=== PATIENT | male | born 1960 | race Caucasian/White ===

== ENCOUNTER → 2017-03-04 | Day surgery (SDC) | payer OTHER ==
[~2017-03-04] MED LIST: ASPIRIN81 M1 PO; ATENOLOL25 MG PO; BRILINTA90 M1 PO; LISINOPRIL2.5 MG PO; LISINOPRIL5 MG PO; NITROSTAT0.4 MG SL; NORCO 5-325 TA1 EACH PO; PLAVIX75 MG PO; PRAVACHOL40 MG PO; SIMVASTATIN40 MG PO
--- NOTE | ~2017-03-04 | O ---
[place], [place] OPERATIVE NOTE NAME: JUSTIN RUFFIN UNIT #: [id number] ROOM: DOCTOR: MARK LINTON MD BIRTHDATE: [birth year] DOS: 03/04/2017 PREOPERATIVE DIAGNOSIS: Right lateral knee soft tissue mass. POSTOPERATIVE DIAGNOSIS: Right lateral knee soft tissue mass. PROCEDURE: Excision of right lateral knee soft tissue mass. SURGEON: Mark Linton MD HAND WASHER: MS3. ANESTHESIA: Local (4 mL of 1% plain lidocaine). INDICATIONS: This is a 56-year-old gentleman with a history of a soft tissue mass on the right lateral knee. He wanted it excised because it was symptomatic. It was decided to take the patient to the operating room under local anesthesia for excision of this mass. The procedure and its complications were explained to the patient in detail preoperatively. Complications that were discussed included but were not limited to bleeding, infection, hematoma/seroma/abscess formation, and prolonged pain. He agreed to proceed. DESCRIPTION OF PROCEDURE: After identifying the patient, the patient was brought to the operating suite and laid in the supine position. After the parts were painted and draped in the usual sterile fashion, a timeout procedure was called and an incision was marked in the long axis of the incision. Local anesthesia was infiltrated. The skin and the subcutaneous tissue were incised. The mass was excised in its entirety after it was dissected away from the surrounding structures. It was sent for histopathological diagnosis. Thereafter, hemostasis was achieved with the help of electrocautery. The area was then irrigated with saline and after hemostasis was confirmed, the subcutaneous tissue was approximated with the help of 3-0 Vicryl in interrupted fashion and the skin edges were approximated with the help of 4-0 Vicryl in a subcuticular running fashion. Dressings are given. The patient tolerated the procedure well. There were no complications. Dr. Mark Linton, the attending surgeon, was present throughout the operating case. [place], [place] OPERATIVE NOTE NAME: JUSTIN RUFFIN UNIT #: [id number] ROOM: DOCTOR: MARK LINTON MD BIRTHDATE: [birth year] Mark Linton MD CM:OPRECORD:OPERATIVE NOTE [id number] MARK LINTON MD 03/05/17 0554 interface
[2017-03-04 10:37] VITALS: BP 101/53
[2017-03-04 11:45] VITALS: BP 122/65
[2017-03-04 12:00] VITALS: BP 115/66
== END | disposition home or self-care (01) ==
LOC: SDC 02-22 12:30
DX: C49.21 Malignant neoplasm of connective and soft tissue of right lower limb, including hip (principal); I25.2 Old myocardial infarction; I10 Essential (primary) hypertension; E78.5 Hyperlipidemia, unspecified; Z95.818 Presence of other cardiac implants and grafts; Z82.49 Family history of ischemic heart disease and other diseases of the circulatory system; Z83.3 Family history of diabetes mellitus; Z87.891 Personal history of nicotine dependence

== ENCOUNTER 2017-03-16 11:38 | Inpatient (IN) | payer OTHER ==
[2017-03-16] VITALS (9 sets, daily range): BP systolic 126–145; BP diastolic 71–83
[~2017-03-16] VITALS: Ht 172.7 cm; Wt 88.7 kg
--- NOTE | ~2017-03-16 | EKG ---
[place], [place] ELECTROCARDIOGRAM REPORT NAME: JUSTIN RUFFIN UNIT #: [id number] ROOM: 416 DOCTOR: SHAKIRA CONNELL MD BIRTHDATE: [birth year] DOS: 03/17/2017 TIME: 0640 in the morning. FINDINGS: Sinus rhythm at rate of 61. T-wave flattening with lateral T-wave inversion. Abnormal electrocardiogram. SHAKIRA CONNELL MD CM:EKGRPT:ELECTROCARDIOGRAM REPORT [id number] SHAKIRA CONNELL MD
--- NOTE | ~2017-03-16 | ST ---
[place], [place] EXERCISE STRESS TEST REPORT NAME: JUSTIN RUFFIN UNIT #: [id number] ROOM: 416 DOCTOR: SHAKIRA CONNELL MD BIRTHDATE: [birth year] DOS: 03/17/2017 PHARMACOLOGIC STRESS TEST INDICATIONS: Chest pain, history of coronary artery disease. PROCEDURE: The patient was given a rapid infusion of regadenoson 0.4 mg intravenously followed by a saline flush. He experienced nausea, lightheadedness and dyspnea, all of which resolved spontaneously. The resting electrocardiogram showed sinus bradycardia. With the infusion, his heart rate surekha from 46-83 beats per minute, blood pressure fell from 104/72-102/60. No diagnostic ST or T-wave changes occurred. After the infusion, he was given radionuclide intravenously. IMPRESSION: 1. Well tolerated infusion of regadenoson. 2. Radionuclide injected. Please see the separate imaging report for further details of the patient's stress test results. SHAKIRA CONNELL MD CM:STRESS:EXERCISE STRESS TEST REPORT [id number] SHAKIRA CONNELL MD
--- NOTE | ~2017-03-16 | EKG ---
[place], [place] ELECTROCARDIOGRAM REPORT NAME: JUSTIN RUFFIN UNIT #: [id number] ROOM: 416 DOCTOR: SHAKIRA CONNELL MD BIRTHDATE: [birth year] DOS: 03/16/2017 TIME: 11:55 a.m. FINDINGS: Normal sinus rhythm at rate of 61. Nonspecific T-wave flattening. Abnormal electrocardiogram. SHAKIRA CONNELL MD CM:EKGRPT:ELECTROCARDIOGRAM REPORT [id number] SHAKIRA CONNELL MD
[2017-03-16 12:22] LABS: BASO # 0.1 10*3/uL (0.0-0.1); BASO % 0.7 % (0.0-1.0); EOS # 0.4 10*3/uL (0.0-0.4); EOS % 4.2 % (1.0-4.0); HEMOGLOBIN 16.3 g/dl (14.0-18.0); IG # 0.1 10*3/uL (0.0-0.1); LYMPH # 2.9 10*3/uL (1.3-4.4); MEAN CELL VOLUME 90.2 fl (80.0-94.0); MEAN CORPUSCULAR HGB 31.3 pg (27.0-31.0); MEAN CORPUSCULAR HGB CONC 34.7 g/dl (33.0-37.0); MEAN PLATELET VOLUME 9.4 fl (9.6-12.3); MONO # 0.8 10*3/uL (0.1-1.0); MONO % 8.3 % (3.0-9.0); NEUT # 5.3 10*3/uL (2.3-7.9); NEUT % 56.3 % (47.0-73.0); PLATELET COUNT AUTOMATED 308 10*3/uL (130-400); RED BLOOD COUNT 5.21 10*6/uL (4.50-5.90); RED CELL DISTRI WIDTH 14.8 % (0-14.5); WHITE BLOOD COUNT 9.5 10*3/uL (4.8-10.8)
[2017-03-16 12:32] LABS: PROTHROMBIN TIME 10.7 SECONDS (9.0-12.4)
[2017-03-16 12:39] LABS: ALBUMIN 3.8 gm/dl (3.1-4.5); ALKALINE PHOSPHATASE 75 U/L (45-117); BILIRUBIN, TOTAL 0.5 mg/dl (0.2-1.0); BUN 11 mg/dl (7-24); CARBON DIOXIDE 26 mmol/L (21-32); CHLORIDE 107 mmol/L (98-107); EST GLOM FILT AFRICAN AMERICAN > 60 ml/min; GLUCOSE 126 mg/dL (65-99); MAGNESIUM 2.1 mg/dL (1.5-2.1); POTASSIUM 3.9 mmol/L (3.5-5.1); SGOT/AST 19 IU/L (3-35); SGPT/ALT 35 U/L (12-78); SODIUM 138 mmol/L (136-145)
[2017-03-16 12:44] LABS: TROPONIN I < 0.015 ng/ml (<0.045)
[2017-03-16 18:46] LABS: CKMB 0.6 ng/ml (0.5-3.6); CPK 69 U/L (39-308)
[2017-03-16 18:47] LABS: TROPONIN I < 0.015 ng/ml (<0.045)
[2017-03-17] VITALS: BP 107/60
[2017-03-17 00:49] LABS: CPK 82 U/L (39-308)
[2017-03-17 00:51] LABS: CKMB < 0.5 ng/ml (0.5-3.6); TROPONIN I < 0.015 ng/ml (<0.045)
[2017-03-17 06:06] LABS: BASO # 0.1 10*3/uL (0.0-0.1); BASO % 0.7 % (0.0-1.0); EOS # 0.4 10*3/uL (0.0-0.4); EOS % 4.4 % (1.0-4.0); HEMATOCRIT 49.5 % (42.0-52.0); HEMOGLOBIN 16.5 g/dl (14.0-18.0); IG # 0.1 10*3/uL (0.0-0.1); LYMPH # 3.9 10*3/uL (1.3-4.4); LYMPH % 38.7 % (27.0-41.0); MEAN CELL VOLUME 91.3 fl (80.0-94.0); MEAN CORPUSCULAR HGB 30.4 pg (27.0-31.0); MEAN CORPUSCULAR HGB CONC 33.3 g/dl (33.0-37.0); MEAN PLATELET VOLUME 9.5 fl (9.6-12.3); MONO % 9.5 % (3.0-9.0); NEUT # 4.6 10*3/uL (2.3-7.9); PLATELET COUNT AUTOMATED 314 10*3/uL (130-400); RED BLOOD COUNT 5.42 10*6/uL (4.50-5.90); RED CELL DISTRI WIDTH 14.8 % (0-14.5)
[2017-03-17 06:15] LABS: CPK 67 U/L (39-308)
[2017-03-17 06:24] LABS: CKMB < 0.5 ng/ml (0.5-3.6); TROPONIN I < 0.015 ng/ml (<0.045)
[2017-03-17 06:34] LABS: BUN 10 mg/dl (7-24); CARBON DIOXIDE 26 mmol/L (21-32); CHLORIDE 110 mmol/L (98-107); CHOLESTEROL 154 mg/dL (<200); EST GLOM FILT AFRICAN AMERICAN > 60 ml/min; FREE T4 0.94 ng/dl (0.76-1.46); GLUCOSE 108 mg/dL (65-99); HDL CHOLESTEROL 37 mg/dl (40-60); LDL CHOLESTEROL 72 mg/dL (9-159); POTASSIUM 3.9 mmol/L (3.5-5.1); SODIUM 134 mmol/L (136-145); TRIGLYCERIDES 223 mg/dl (<150); VLDL CHOLESTEROL 45 mg/dL (6-40)
[2017-03-17 06:52] LABS: PROTHROMBIN TIME 10.7 SECONDS (9.0-12.4)
[2017-03-17 06:58] LABS: HEMOGLOBIN A1c 6.1 % (4.8-5.6)
[2017-03-17 07:21] LABS: VITAMIN D, 25-HYDROXY 49.2 ng/mL (30-100)
[2017-03-17 07:36] LABS: FOLIC ACID > 24.00 ng/mL (>5.38)
[2017-03-17 08:00] VITALS: BP 98/53
[2017-03-17] MEDS ORDERED: ATORVASTATIN CA80 M1 PO (15:58)
[2017-03-17] MEDS ORDERED: CALCIUM CARBON500 M1 PO (15:58)
[2017-03-17] MEDS ORDERED: METOPROLOL SUCC25 M2 PO (15:58)
[2017-03-17 16:00] VITALS: BP 107/72
[2017-03-17 20:00] VITALS: BP 128/70
[2017-03-18] VITALS: BP 104/52
[2017-03-18 08:00] VITALS: BP 150/75
== END 2017-03-18 08:37 | disposition other institution (70) | DRG 303 ==
LOC: ED 11:38 → EDHOLD 14:08 → 4E 14:08
PROVIDERS: Emergency Medicine; Internal Medicine
DX: I25.9 Chronic ischemic heart disease, unspecified (principal); E87.8 Other disorders of electrolyte and fluid balance, not elsewhere classified; I10 Essential (primary) hypertension; R00.1 Bradycardia, unspecified; I25.118 Atherosclerotic heart disease of native coronary artery with other forms of angina pectoris; R73.9 Hyperglycemia, unspecified; F17.200 Nicotine dependence, unspecified, uncomplicated; E78.5 Hyperlipidemia, unspecified; I25.2 Old myocardial infarction; Z82.49 Family history of ischemic heart disease and other diseases of the circulatory system; Z83.3 Family history of diabetes mellitus; Z79.82 Long term (current) use of aspirin; Z79.899 Other long term (current) drug therapy; Z71.6 Tobacco abuse counseling; Z95.818 Presence of other cardiac implants and grafts

== ENCOUNTER 2017-08-10 15:59 | Inpatient (IN) | payer BC, MEDICAID ==
[~2017-08-10] VITALS: Ht 172.7 cm; Wt 90.5 kg
--- NOTE | ~2017-08-10 | CON ---
[place], [place] REPORT OF CONSULTATION NAME: JUSTIN RUFFIN UNIT #: [id number] ROOM: 426 DOCTOR: ABEL NIEVESKARANSEBASTIÁN BIRTHDATE: [birth year] DOS: 08/11/2017 REQUESTING PHYSICIAN: Dr. Cruz. REASON FOR CONSULTATION: Chest pain. ASSESSMENT: 1. Current presentation with chest pain similar to what patient had prior to his previous stents. 2. Right lower extremity edema and swelling along with evidence of DVT. 3. The patient was found out also to have a PE. 4. Recent diagnosis of right lower extremity sarcoma status post surgery at the [facility]. 5. Hypertension. 6. The patient appears to be prediabetic. 7. Hyperlipidemia. 8. Active tobacco abuse. 9. Probable obstructive sleep apnea. 10. Early family history of heart disease. PLAN: 1. Cycle cardiac enzymes. 2. Proceed with an echocardiogram to rule out any wall motion abnormalities and evaluate the right-sided chambers. 3. Anticoagulation with either Lovenox/Xarelto/NOACs will be deferred to primary team. 4. Please continue enteric-coated aspirin 81 mg. 5. No further cardiac testing at this time. 6. Follow up with Dr. Eckert as an outpatient per his discretion. HISTORY OF PRESENT ILLNESS: The patient is a pleasant 56-year-old gentleman well known to our group with Dr. Eckert, the patient carries history of coronary artery disease. Apparently, he underwent PTCA stent placement about [address] Clifton on [place]. From the cardiology point of view, the patient has been doing relatively well. He is active, but does not follow a regular exercise program. Yesterday, the patient had an episode of chest pain which is quite similar to what he had before his stents. The pain starts from his neck and goes all the way down burning sensation that lasted about 20 minutes. The patient took nitro but did not respond promptly to this medication. The patient subsequently presented to the emergency room where he was found to have significant swelling in the right lower extremity, DVT was found out along with PE after that. The patient never had any symptomatic palpitation or any associated dizziness, lightheadedness or near syncope. No fever, no chills, no night sweats, maintained good appetite, no weight loss. He sleeps on 1 pillow with no reported PND, orthopnea, or pedal edema. The patient does give report of snoring. PAST MEDICAL HISTORY: As detailed in my assessment. SOCIAL HISTORY: The patient continued to smoke, has been doing this since he [place], [place] REPORT OF CONSULTATION NAME: JUSTIN RUFFIN UNIT #: [id number] ROOM: 426 DOCTOR: SEAN ROMAN MD BIRTHDATE: [birth year] was 8-year-old. No alcohol or illicit drug abuse. FAMILY HISTORY: The patient's mother in her 70s probably from myocardial infarction. The patient is unsure how early did she have heart problem. Father in his 60s of myocardial infarction. CURRENT MEDICATIONS: Lovenox , Restoril, Zofran, morphine, Dulcolax and aspirin. ALLERGIES: The patient has no known drug allergies. REVIEW OF SYSTEMS: The patient currently denies any headache, diplopia, or blurry vision. No fever, no chills, no night sweats. No abdominal pain, no bright red blood per rectum or tarry stools. The patient admits to joint pain, no muscular pain. No anxiety, no depression. No polyuria, no polydipsia, no skin rash. Review of all other systems has been negative. PHYSICAL EXAMINATION: GENERAL: The patient is alert, oriented times 3, quite pleasant. He is sitting up in bed, does not appear in distress, just finished his breakfast. VITAL SIGNS: Blood pressure 123/80, heart rate 57, respiration rate of 20, temperature 98. HEENT: Extraocular muscles intact. Pupils equal, round, reactive to light. No pallor. Throat, no petechiae. NECK: Good upstroke. Unable to appreciate any bruit, no lymphadenopathy, no thyromegaly. HEART: S1, S2 with faint holosystolic murmur in the left upper sternal border. No rub, no sternal heave. CHEST AND BACK: No deformities. LUNGS: Clear to auscultation. Good air movement. No wheezing, rales. ABDOMEN: Obese, soft, nontender. bowel sounds. No masses, no bruits. LOWER EXTREMITIES: There is no edema on the left. There is significant edema on the right with erythema. Faint distal pulses. NEUROLOGIC: Grossly nonfocal. SKIN: No significant rash. Electrocardiogram showed normal sinus rhythm with mild nonspecific ST changes throughout the EKG. LABORATORY DATA: White count 8.8, hemoglobin 13.5, potassium 3.9. GFR more than 60%. Hemoglobin A1c 6.1. Troponin less than 0.015. Total cholesterol 107, LDL 46, HDL 30. Normal thyroid function test. [place], [place] REPORT OF CONSULTATION NAME: JUSTIN RUFFIN UNIT #: [id number] ROOM: 426 DOCTOR: SEAN ROMAN MD BIRTHDATE: [birth year] SEAN ROMAN MD CM:CONSTR:REPORT OF CONSULTATION 0958 08/12/17 1606 interface
[~2017-08-10 15:59] MED LIST changes: +ATORVASTATIN CA80 M1 PO; +CALCIUM CARBON500 M1 PO; +METOPROLOL SUCC25 M2 PO
[2017-08-10 16:07] VITALS: BP 104/60
[2017-08-10 16:18] LABS: BASO # 0.1 10*3/uL (0.0-0.1); BASO % 0.6 % (0.0-1.0); EOS # 0.5 10*3/uL (0.0-0.4); EOS % 4.5 % (1.0-4.0); HEMATOCRIT 42.6 % (42.0-52.0); HEMOGLOBIN 14.6 g/dl (14.0-18.0); LYMPH # 2.7 10*3/uL (1.3-4.4); LYMPH % 24.9 % (27.0-41.0); MEAN CELL VOLUME 92.4 fl (80.0-94.0); MEAN CORPUSCULAR HGB 31.7 pg (27.0-31.0); MEAN CORPUSCULAR HGB CONC 34.3 g/dl (33.0-37.0); MEAN PLATELET VOLUME 9.4 fl (9.6-12.3); MONO % 9.6 % (3.0-9.0); NEUT # 6.5 10*3/uL (2.3-7.9); PLATELET COUNT AUTOMATED 300 10*3/uL (130-400); RED BLOOD COUNT 4.61 10*6/uL (4.50-5.90); RED CELL DISTRI WIDTH 14.3 % (0-14.5); WHITE BLOOD COUNT 10.9 10*3/uL (4.8-10.8)
[2017-08-10 16:33] LABS: ACT PARTIAL THROMBO TIME 24.1 SECONDS (20.8-31.5)
[2017-08-10 16:34] LABS: ALBUMIN 3.6 gm/dl (3.1-4.5); ALKALINE PHOSPHATASE 94 U/L (45-117); BUN 16 mg/dl (7-24); CHLORIDE 107 mmol/L (98-107); CREATININE 0.74 mg/dL (0.70-1.30); MAGNESIUM 2.2 mg/dL (1.5-2.1); POTASSIUM 3.7 mmol/L (3.5-5.1); SGOT/AST 16 IU/L (3-35); SGPT/ALT 28 U/L (12-78); SODIUM 140 mmol/L (136-145); TOTAL PROTEIN 7.2 gm/dL (6.4-8.2)
[2017-08-10 16:35] LABS: TROPONIN I < 0.015 ng/ml (<0.045)
--- NOTE | 2017-08-10 16:56 | NUR ---
PATIENT TO ULTRASOUND AT THIS TIME.
[2017-08-10 17:28] VITALS: BP 100/51
--- NOTE | 2017-08-10 18:17 | NUR ---
PATIENT ADMISSION ON HOLD AT THIS TIME FOR ROOM CLEANING.
--- NOTE | 2017-08-10 19:12 | NUR ---
DR. GILBERT WAS NOTIFIED VIA PHONE OF ULTRASOUND RESULT PRIOR TO PATIENT BEING TRANSPORTED TO THE FLOOR. [facility] ADVISED OF THIS.
[2017-08-10 19:27] VITALS: BP 103/45
--- NOTE | 2017-08-10 19:57 | NUR ---
SPOKE TO REGARDING LOVENOX ORDER. INSTRUCTED TO GIVE THE 1999 DOSE OF LOVENOX ORDERED. HOLD THE SCHEDULED 1930 DOSE.
[2017-08-10 20:40] VITALS: BP 128/62
--- NOTE | 2017-08-10 20:40 | NUR ---
A 56, admitted to 4E, under the services of ANATOLY Clark DO with a diagnosis of CHEST PAIN R/O ACUTE OR. Chief complaint is CHEST PAIN. Patient arrived via stretcher from ER. Monitor applied. Initial assessment completed. Vital signs taken and recorded. ANATOLY CLARK DO notified of admission to the unit. Orders received. See assessment for past medical history, medications and allergies. Patient and/or family oriented to unit. [facility] visitation policy reviewed. Clothing/patient valuable form completed. SADE GRACIA
--- NOTE | 2017-08-10 21:29 | NUR ---
'S ANSWERING SERVICE CALLED AT THIS TIME.
--- NOTE | 2017-08-10 21:30 | NUR ---
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 PATIENT AND STATE THEY WERE INSTRUCTED TO APPLY THICK LAYER OF SILVADINE 1% CREAM AND COVER WITH ABD PAD/KERLIX. DAILY DRESSING CHANGES. IS THE PLASTIC SURGEON WHO REMOVED MASS & GAVE DRESSING ORDERS. PER , HIS OFFICE OUT OF [place]. PATIENT AND STATE THEY THINK THEY ARE TO FOLLOW UP WITH ON WEDNESDAY (08/16/17).
--- NOTE | 2017-08-10 21:33 | NUR ---
SPOKE WITH AT THIS TIME REGARDING CONSULT. DISCUSSED PERTINENT PATIENT DEMOGRAPHICS INCLUDING HISTORY, LABS, IMAGING TESTS, AND MEDICATIONS ADMINISTERED. NO NEW ORDERS RECEIVED AT THIS TIME. STATES SOMEONE WILL SEE HIM IN THE MORNING.
--- NOTE | 2017-08-10 21:39 | NUR ---
NOTIFIED OF CRITICAL CTA RESULT PER FOUNDATIONAL RADIOLOGIST . NO NEW ORDERS RECEIVED AT THIS TIME.
--- NOTE | 2017-08-10 22:52 | NUR ---
SPOKE TO AT THIS TIME REGARDING WOUND CARE ORDERS. PER , PLASTIC SURGEON WHO REMOVED SARCOMA TO POSTERIOR RIGHT KNEE ORDERED THAT 1% SILVADINE BE APPLIED TO THE WOUND COVERED WITH ABD/KERLIX. IN ORDER TO TAKE WOUND PHOTOS/MEASURE, PATIENT'S WANTS WOUND TO BE REDRESSED PER ORDER. PER , OKAY TO APPLY ORDERS PER . ALSO DISCUSSED PATIENT'S DIET. NEW ORDER RECEIVED FOR REGULAR DIET.
[2017-08-11] VITALS: BP 126/80
--- NOTE | 2017-08-11 00:22 | NUR ---
WOUND PHOTOS TAKEN PER POLICY AT THIS TIME.
[2017-08-11] MEDS ORDERED: TOPROL XL25 MG PO (01:37)
[2017-08-11] MEDS ORDERED: VITAMIN D50000 UNIT PO (01:38)
--- NOTE | 2017-08-11 01:38 | NUR ---
HOME MED REC UP TO DATE PER PATIENT RECALL AND LIST SUPPLIED BY PATIENT'S .
--- NOTE | 2017-08-11 04:04 | NUR ---
PATIENT ASLEEP IN BED AT THIS TIME. RESPIRATIONS EASY, NO S/S OF DISTRESS NOTED. WILL MONITOR.
[2017-08-11] MEDS ORDERED: PERCOCET 5-3251 EACH PO (04:42)
[2017-08-11 06:58] LABS: BASO # 0.1 10*3/uL (0.0-0.1); BASO % 0.6 % (0.0-1.0); EOS # 0.4 10*3/uL (0.0-0.4); EOS % 4.6 % (1.0-4.0); HEMATOCRIT 40.6 % (42.0-52.0); HEMOGLOBIN 13.5 g/dl (14.0-18.0); LYMPH % 33.9 % (27.0-41.0); MEAN CELL VOLUME 93.5 fl (80.0-94.0); MEAN CORPUSCULAR HGB 31.1 pg (27.0-31.0); MEAN CORPUSCULAR HGB CONC 33.3 g/dl (33.0-37.0); MONO % 11.5 % (3.0-9.0); NEUT # 4.3 10*3/uL (2.3-7.9); NEUT % 48.7 % (47.0-73.0); PLATELET COUNT AUTOMATED 276 10*3/uL (130-400); RED BLOOD COUNT 4.34 10*6/uL (4.50-5.90); RED CELL DISTRI WIDTH 14.4 % (0-14.5); WHITE BLOOD COUNT 8.8 10*3/uL (4.8-10.8)
[2017-08-11 07:01] LABS: ALBUMIN 3.3 gm/dl (3.1-4.5); ALKALINE PHOSPHATASE 80 U/L (45-117); BUN 13 mg/dl (7-24); CHLORIDE 108 mmol/L (98-107); CHOLESTEROL 107 mg/dL (<200); CREATININE 0.73 mg/dL (0.70-1.30); HDL CHOLESTEROL 30 mg/dl (40-60); LDL CHOLESTEROL 46 mg/dL (9-159); PHOSPHOROUS 3.6 mg/dL (2.5-4.9); POTASSIUM 3.9 mmol/L (3.5-5.1); SGOT/AST 14 IU/L (3-35); SGPT/ALT 22 U/L (12-78); SODIUM 141 mmol/L (136-145); TOTAL PROTEIN 6.4 gm/dL (6.4-8.2); TRIGLYCERIDES 156 mg/dl (<150); VLDL CHOLESTEROL 31 mg/dL (6-40)
[2017-08-11 07:05] LABS: THYROID STIM HORMONE (HS) 0.701 uIU/ml (0.358-4.75)
[2017-08-11 07:26] LABS: ACT PARTIAL THROMBO TIME 26.4 SECONDS (20.8-31.5); INTERNATIONAL NORM RATIO 1.1 (2.0-3.5)
[2017-08-11 07:42] LABS: VITAMIN D, 25-HYDROXY 42.9 ng/mL (30-100)
[2017-08-11 08:00] VITALS: BP 123/80
--- NOTE | 2017-08-11 09:00 | NUR ---
Line Manager in to talk to patient. Patient states lives at home with . There are few steps in the home. Physician: [facility] Pharmacy: [facility] Home health services: none Patient's level of ADLs: INDEPENDENT Patient has working utilities: all working DME: none Follow-up physician's appointment after d/c: will be made by hospitalist nurse director upon discharge Does patient want to access PORTAL?: no Discharge plan discussed with patient, patient lives at home with , states she is independent in adls and ambulation, patient denies any home needs. REFUGIO CORTES
--- NOTE | 2017-08-11 09:10 | NUR ---
Recieved message via SS patient would like information regarding HPOA/Living will. Provided patient with copies for him and his to review.
--- NOTE | 2017-08-11 09:30 | NUR ---
case management received a message to check on cost of xeralto for patient, called [facility], spoke to pharmacist, xeralto needed a prior authorization, called insurance, spoke to Marlene, medication was approved until 08/11/2018, reference number is [id number], called [facility] back, patient has a $0 copay, hospitalist nurse director and patient notified
[2017-08-11 11:36] VITALS: BP 124/62
--- NOTE | 2017-08-11 12:49 | NUR ---
PRN NORCO GIVEN FOR GENERALIZED DISCOMFORT AND PAIN. WILL MONITOR.
--- NOTE | 2017-08-11 14:09 | NUR ---
JUSTIN RUFFIN [id number] Please refer to the physician's history and physical for past medical history, comorbid conditions, and allergies. Diagnosis: CHEST PAIN, RULE OUT ACUTE MYOCARDIAL IFARCTION Brendon Score: 19,LOW OR NO RISK WOUND DESCRIPTIONS: Location of the wound: right posterior knee Type of wound: surgical Thickness: Full Size: 15.5cm x 4.7cm x 0.2cm Tunneling: none Undermining: none Sinus Tract: none Presence of Exudate: Purulent Amount: Moderate Color: Brown, black, red, yellow Odor: None Periwound Skin Appearance: Erythema Wound edges: approximated Pain (associated with wound): none at time of assessment How does patient state this happened? pt stated he had a sacroma removed on July 14 and has a follow up appointment on wednesday. Tendon exposed Location of the wound: right upper thigh Type of wound: surigcal graft site Thickness: Partial Size: 14.1cm x 4.1cm x 0.1cm Tunneling: none Undermining: none Sinus Tract: none Presence of Exudate: none Amount: None Color: Red Odor: None Periwound Skin Appearance: Normal Wound edges: approximated Pain (associated with wound): none at time of assessment How does patient state this happened? pt stated he had surgery on jul 14 to remove a sacroma and has a follow up appointment on wednesday. Surface the patient is resting on: Isoflex SKIN PREVENTION RECOMMENDATION: 1. Pressure redistribution support surface as appropriate 2. Elevate heels 3. Remove boots/TEDS every shift and reapply 4. Head of bed 30 degrees as tolerated 5. Assess nutrition and hydration 6. Manage moisture 7. Avoid the use of containment devices while in bed 8. Use absorptive products on surfaces limit layers of linens on bed 9. Turn and reposition every 1-2 hours in bed and every 1 hour in chair as tolerated 10. Weight shifts every 15 minutes while up in chair 11. Offloading with pillows or device to keep heels elevated off bed 12. Monitor skin at least every shift 13. Inspect under medical devices twice a day WOUND TREATMENT RECOMMENDATIONS: Continue current wound care orders that were made from the surgeon per his and the patient. Follow up with surgeon on wednesday
[2017-08-11] MEDS ORDERED: XARE15TA PO (15:20)
--- NOTE | 2017-08-11 15:24 | NUR ---
Nutritional Support Services Note: Appetite is good for meals. Encouraged increased protein and calories to promote healing. No other nutrition issues at this time. Will follow as needed. Regular diet as ordered. Rashmi Warren
[2017-08-11 16:00] VITALS: BP 114/56
--- NOTE | 2017-08-11 18:30 | NUR ---
[facility] Discharge instructions reviewed with patient/family. Patient receptive and verbalizes understanding. Follow-up care arranged. Written instructions given to patient/family. MARTA GARCIA
== END 2017-08-11 18:30 | disposition home or self-care (01) | DRG 299 ==
LOC: ED 15:59 → 4E 16:50 → EDHOLD 16:50 → 4E 17:05
PROVIDERS: Emergency Medicine; Hospitalist; ADMIT Internal Medicine
DX: I82.491 Acute embolism and thrombosis of other specified deep vein of right lower extremity (principal); I26.99 Other pulmonary embolism without acute cor pulmonale; I10 Essential (primary) hypertension; I25.10 Atherosclerotic heart disease of native coronary artery without angina pectoris; F17.210 Nicotine dependence, cigarettes, uncomplicated; F41.9 Anxiety disorder, unspecified; R73.9 Hyperglycemia, unspecified; D64.9 Anemia, unspecified; E78.5 Hyperlipidemia, unspecified; Z79.82 Long term (current) use of aspirin; Z83.3 Family history of diabetes mellitus; Z82.49 Family history of ischemic heart disease and other diseases of the circulatory system; Z98.61 Coronary angioplasty status; I25.2 Old myocardial infarction; Z79.899 Other long term (current) drug therapy

== ENCOUNTER 2017-09-17 09:28 | Emergency (ER) | payer OTHER ==
[~2017-09-17] VITALS: Wt 90.7 kg
[~2017-09-17 09:28] MED LIST changes: +PERCOCET 5-3251 EACH PO; +TOPROL XL25 MG PO; +VITAMIN D50000 UNIT PO; +XARE15TA PO
[2017-09-17 10:24] LABS: BASO # 0.1 10*3/uL (0.0-0.1); BASO % 0.8 % (0.0-1.0); EOS # 0.4 10*3/uL (0.0-0.4); EOS % 3.9 % (1.0-4.0); HEMATOCRIT 43.8 % (42.0-52.0); HEMOGLOBIN 14.8 g/dl (14.0-18.0); LYMPH # 2.2 10*3/uL (1.3-4.4); LYMPH % 24.2 % (27.0-41.0); MEAN CELL VOLUME 91.6 fl (80.0-94.0); MEAN CORPUSCULAR HGB CONC 33.8 g/dl (33.0-37.0); MEAN PLATELET VOLUME 9.1 fl (9.6-12.3); MONO # 0.9 10*3/uL (0.1-1.0); MONO % 9.7 % (3.0-9.0); NEUT # 5.6 10*3/uL (2.3-7.9); PLATELET COUNT AUTOMATED 306 10*3/uL (130-400); RED BLOOD COUNT 4.78 10*6/uL (4.50-5.90); RED CELL DISTRI WIDTH 13.7 % (0-14.5); WHITE BLOOD COUNT 9.1 10*3/uL (4.8-10.8)
[2017-09-17 10:26] LABS: BILIRUBIN NEGATIVE (NEGATIVE); BLOOD 3+ (NEGATIVE); CLARITY TURBID (CLEAR); COLOR RED (YELLOW); GLUCOSE NEGATIVE (NEGATIVE); KETONE TRACE (NEGATIVE); NITRITE POSITIVE (NEGATIVE)
[2017-09-17 10:28] LABS: LEUKO ESTERASE TRACE (NEGATIVE)
[2017-09-17 10:36] LABS: INTERNATIONAL NORM RATIO 1.1 (2.0-3.5)
[2017-09-17 10:38] LABS: RBC TNTC rbc/hpf (0-2)
[2017-09-17 10:57] LABS: ALBUMIN 3.5 gm/dl (3.1-4.5); ALKALINE PHOSPHATASE 101 U/L (45-117); BUN 8 mg/dl (7-24); CHLORIDE 107 mmol/L (98-107); CREATININE 0.78 mg/dL (0.70-1.30); LIPASE 172 U/L (73-393); POTASSIUM 3.8 mmol/L (3.5-5.1); SGOT/AST 12 IU/L (3-35); SGPT/ALT 26 U/L (12-78); SODIUM 141 mmol/L (136-145); TOTAL PROTEIN 7.1 gm/dL (6.4-8.2)
[2017-09-17] MEDS ORDERED: SEPTDS PO (13:49)
[2017-09-17] MEDS ORDERED: FLOMAX0.4 MG PO (13:49)
== END 2017-09-17 14:45 | disposition home or self-care (01) ==
LOC: ED 09:28
PROVIDERS: Physician Assistant
DX: N30.01 Acute cystitis with hematuria (principal); F17.200 Nicotine dependence, unspecified, uncomplicated; Z79.899 Other long term (current) drug therapy; Z79.82 Long term (current) use of aspirin

== ENCOUNTER → 2017-11-09 | Outpatient (CLI) | payer OTHER ==
[~2017-11-09] MED LIST changes: +FLOMAX0.4 MG PO; +SEPTDS PO
[2017-11-09 10:40] LABS: BILIRUBIN NEGATIVE (NEGATIVE); BLOOD TRACE-INTACT (NEGATIVE); CLARITY SL CLOUDY (CLEAR); COLOR YELLOW (YELLOW); GLUCOSE NEGATIVE (NEGATIVE); KETONE TRACE (NEGATIVE); LEUKO ESTERASE NEGATIVE (NEGATIVE); NITRITE NEGATIVE (NEGATIVE); SPECIFIC GRAVITY >= 1.030 (1.005-1.030); UROBILINOGEN 0.2 E.U./dl (0.2-1.0)
[2017-11-09 10:52] LABS: BACTERIA 1+; MUCOUS 3+
== END | disposition home or self-care (01) ==
LOC: LAB 10:05
PROVIDERS: Urology
DX: R31.9 Hematuria, unspecified (principal)

== ENCOUNTER → 2021-05-16 | Outpatient (CLI) | payer MEDICARE ==
[~2021-05-16] MED LIST changes: +DOXYCYCLINE100 M3 PO; +FAMOTIDINE40 MG PO; +OMEPRAZOLE40 MG PO
== END ==
LOC: WOUNDCARE 01:51
PROVIDERS: ATTEND Nurse Practitioner
DX: L97.812 Non-pressure chronic ulcer of other part of right lower leg with fat layer exposed (principal); L59.8 Other specified disorders of the skin and subcutaneous tissue related to radiation; I25.10 Atherosclerotic heart disease of native coronary artery without angina pectoris; I10 Essential (primary) hypertension; I25.2 Old myocardial infarction; R00.1 Bradycardia, unspecified; Z92.3 Personal history of irradiation; Z72.0 Tobacco use; Z71.6 Tobacco abuse counseling; Z86.711 Personal history of pulmonary embolism; Z95.5 Presence of coronary angioplasty implant and graft

== ENCOUNTER → 2021-05-23 | Outpatient (CLI) | payer MEDICARE | LOC: WOUNDCARE 02:36 | PROVIDERS: ATTEND Nurse Practitioner | DX: L97.812 Non-pressure chronic ulcer of other part of right lower leg with fat layer exposed (principal); L59.8 Other specified disorders of the skin and subcutaneous tissue related to radiation; I25.10 Atherosclerotic heart disease of native coronary artery without angina pectoris; I10 Essential (primary) hypertension; I25.2 Old myocardial infarction; R00.1 Bradycardia, unspecified; Z92.3 Personal history of irradiation; Z72.0 Tobacco use; Z71.6 Tobacco abuse counseling; Z86.711 Personal history of pulmonary embolism; Z95.5 Presence of coronary angioplasty implant and graft ==

== ENCOUNTER → 2021-05-30 | Outpatient (CLI) | payer MEDICARE | LOC: WOUNDCARE 01:06 | PROVIDERS: ATTEND Nurse Practitioner | DX: L97.812 Non-pressure chronic ulcer of other part of right lower leg with fat layer exposed (principal); L59.8 Other specified disorders of the skin and subcutaneous tissue related to radiation; I25.10 Atherosclerotic heart disease of native coronary artery without angina pectoris; I10 Essential (primary) hypertension; I25.2 Old myocardial infarction; R00.1 Bradycardia, unspecified; Z92.3 Personal history of irradiation; Z72.0 Tobacco use; Z71.6 Tobacco abuse counseling; Z86.711 Personal history of pulmonary embolism; Z95.5 Presence of coronary angioplasty implant and graft ==

== ENCOUNTER → 2021-06-06 | Outpatient (CLI) | payer MEDICARE | LOC: WOUNDCARE 02:30 | PROVIDERS: ATTEND Nurse Practitioner | DX: L59.8 Other specified disorders of the skin and subcutaneous tissue related to radiation (principal); L97.812 Non-pressure chronic ulcer of other part of right lower leg with fat layer exposed; I10 Essential (primary) hypertension; I25.2 Old myocardial infarction; I25.10 Atherosclerotic heart disease of native coronary artery without angina pectoris; F17.200 Nicotine dependence, unspecified, uncomplicated; Z86.711 Personal history of pulmonary embolism; Z86.718 Personal history of other venous thrombosis and embolism; Y84.2 Radiological procedure and radiotherapy as the cause of abnormal reaction of the patient, or of later complication, without mention of misadventure at the time of the procedure ==

== ENCOUNTER → 2021-06-17 | Outpatient (CLI) | payer MEDICARE | LOC: WOUNDCARE 01:43 | PROVIDERS: ATTEND Surgery | DX: L59.8 Other specified disorders of the skin and subcutaneous tissue related to radiation (principal); L97.812 Non-pressure chronic ulcer of other part of right lower leg with fat layer exposed; I10 Essential (primary) hypertension; I25.2 Old myocardial infarction; I25.10 Atherosclerotic heart disease of native coronary artery without angina pectoris; F17.200 Nicotine dependence, unspecified, uncomplicated; Z86.711 Personal history of pulmonary embolism; Z86.718 Personal history of other venous thrombosis and embolism; Y84.2 Radiological procedure and radiotherapy as the cause of abnormal reaction of the patient, or of later complication, without mention of misadventure at the time of the procedure ==

== ENCOUNTER → 2021-06-23 | Outpatient (CLI) | payer MEDICARE | END | disposition home or self-care (01) | LOC: WOUNDCARE 01:30 | PROVIDERS: ATTEND Nurse Practitioner | DX: L59.8 Other specified disorders of the skin and subcutaneous tissue related to radiation (principal); L97.812 Non-pressure chronic ulcer of other part of right lower leg with fat layer exposed; I10 Essential (primary) hypertension; I25.2 Old myocardial infarction; I25.10 Atherosclerotic heart disease of native coronary artery without angina pectoris; F17.200 Nicotine dependence, unspecified, uncomplicated; Z86.711 Personal history of pulmonary embolism; Z86.718 Personal history of other venous thrombosis and embolism; Y84.2 Radiological procedure and radiotherapy as the cause of abnormal reaction of the patient, or of later complication, without mention of misadventure at the time of the procedure ==

== ENCOUNTER → 2021-06-24 | Outpatient (CLI) | payer MEDICARE | LOC: WOUNDCARE 01:28 | PROVIDERS: ATTEND Nurse Practitioner | DX: L59.8 Other specified disorders of the skin and subcutaneous tissue related to radiation (principal); L97.812 Non-pressure chronic ulcer of other part of right lower leg with fat layer exposed; I10 Essential (primary) hypertension; I25.2 Old myocardial infarction; I25.10 Atherosclerotic heart disease of native coronary artery without angina pectoris; F17.200 Nicotine dependence, unspecified, uncomplicated; Z86.711 Personal history of pulmonary embolism; Z86.718 Personal history of other venous thrombosis and embolism; Y84.2 Radiological procedure and radiotherapy as the cause of abnormal reaction of the patient, or of later complication, without mention of misadventure at the time of the procedure ==

== ENCOUNTER → 2021-06-25 | Outpatient (CLI) | payer MEDICARE | LOC: WOUNDCARE 02:10 | PROVIDERS: ATTEND Nurse Practitioner Primary Care | DX: L59.8 Other specified disorders of the skin and subcutaneous tissue related to radiation (principal); L97.812 Non-pressure chronic ulcer of other part of right lower leg with fat layer exposed; I10 Essential (primary) hypertension; I25.2 Old myocardial infarction; I25.10 Atherosclerotic heart disease of native coronary artery without angina pectoris; F17.200 Nicotine dependence, unspecified, uncomplicated; Z86.711 Personal history of pulmonary embolism; Z86.718 Personal history of other venous thrombosis and embolism; Y84.2 Radiological procedure and radiotherapy as the cause of abnormal reaction of the patient, or of later complication, without mention of misadventure at the time of the procedure ==

== ENCOUNTER → 2021-06-26 | Outpatient (CLI) | payer MEDICARE | LOC: WOUNDCARE 01:20 | PROVIDERS: ATTEND Nurse Practitioner Primary Care | DX: L59.8 Other specified disorders of the skin and subcutaneous tissue related to radiation (principal); L97.812 Non-pressure chronic ulcer of other part of right lower leg with fat layer exposed; I10 Essential (primary) hypertension; I25.2 Old myocardial infarction; I25.10 Atherosclerotic heart disease of native coronary artery without angina pectoris; F17.200 Nicotine dependence, unspecified, uncomplicated; Z86.711 Personal history of pulmonary embolism; Z86.718 Personal history of other venous thrombosis and embolism; Y84.2 Radiological procedure and radiotherapy as the cause of abnormal reaction of the patient, or of later complication, without mention of misadventure at the time of the procedure ==

== ENCOUNTER → 2021-06-27 | Outpatient (CLI) | payer MEDICARE | LOC: WOUNDCARE 01:23 | PROVIDERS: ATTEND Nurse Practitioner | DX: L59.8 Other specified disorders of the skin and subcutaneous tissue related to radiation (principal); L97.812 Non-pressure chronic ulcer of other part of right lower leg with fat layer exposed; I10 Essential (primary) hypertension; I25.2 Old myocardial infarction; I25.10 Atherosclerotic heart disease of native coronary artery without angina pectoris; F17.200 Nicotine dependence, unspecified, uncomplicated; Z86.711 Personal history of pulmonary embolism; Z86.718 Personal history of other venous thrombosis and embolism; Y84.2 Radiological procedure and radiotherapy as the cause of abnormal reaction of the patient, or of later complication, without mention of misadventure at the time of the procedure ==

== ENCOUNTER → 2021-06-30 | Outpatient (CLI) | payer MEDICARE | LOC: WOUNDCARE 00:43 | PROVIDERS: ATTEND Nurse Practitioner | DX: L59.8 Other specified disorders of the skin and subcutaneous tissue related to radiation (principal); L97.812 Non-pressure chronic ulcer of other part of right lower leg with fat layer exposed; I10 Essential (primary) hypertension; I25.2 Old myocardial infarction; I25.10 Atherosclerotic heart disease of native coronary artery without angina pectoris; F17.200 Nicotine dependence, unspecified, uncomplicated; Z86.711 Personal history of pulmonary embolism; Z86.718 Personal history of other venous thrombosis and embolism; Y84.2 Radiological procedure and radiotherapy as the cause of abnormal reaction of the patient, or of later complication, without mention of misadventure at the time of the procedure ==

== ENCOUNTER → 2021-07-01 | Outpatient (CLI) | payer MEDICARE | LOC: WOUNDCARE 00:59 | PROVIDERS: ATTEND Nurse Practitioner | DX: L59.8 Other specified disorders of the skin and subcutaneous tissue related to radiation (principal); L97.812 Non-pressure chronic ulcer of other part of right lower leg with fat layer exposed; I10 Essential (primary) hypertension; I25.2 Old myocardial infarction; I25.10 Atherosclerotic heart disease of native coronary artery without angina pectoris; F17.200 Nicotine dependence, unspecified, uncomplicated; Z71.6 Tobacco abuse counseling; Z86.711 Personal history of pulmonary embolism; Z86.718 Personal history of other venous thrombosis and embolism; Y84.2 Radiological procedure and radiotherapy as the cause of abnormal reaction of the patient, or of later complication, without mention of misadventure at the time of the procedure ==

== ENCOUNTER → 2021-07-02 | Outpatient (CLI) | payer MEDICARE | LOC: WOUNDCARE 00:44 | PROVIDERS: ATTEND Nurse Practitioner | DX: L59.8 Other specified disorders of the skin and subcutaneous tissue related to radiation (principal); L97.812 Non-pressure chronic ulcer of other part of right lower leg with fat layer exposed; I10 Essential (primary) hypertension; I25.2 Old myocardial infarction; I25.10 Atherosclerotic heart disease of native coronary artery without angina pectoris; F17.200 Nicotine dependence, unspecified, uncomplicated; Z71.6 Tobacco abuse counseling; Z86.711 Personal history of pulmonary embolism; Z86.718 Personal history of other venous thrombosis and embolism; Y84.2 Radiological procedure and radiotherapy as the cause of abnormal reaction of the patient, or of later complication, without mention of misadventure at the time of the procedure ==

== ENCOUNTER → 2021-07-03 | Outpatient (CLI) | payer MEDICARE | END | disposition home or self-care (01) | LOC: LAB 00:49 → WOUNDCARE 00:49 | PROVIDERS: ATTEND Surgery | DX: L59.8 Other specified disorders of the skin and subcutaneous tissue related to radiation (principal); M87.88 Other osteonecrosis, other site; L97.812 Non-pressure chronic ulcer of other part of right lower leg with fat layer exposed; I10 Essential (primary) hypertension; I25.2 Old myocardial infarction; F17.200 Nicotine dependence, unspecified, uncomplicated; Z71.6 Tobacco abuse counseling; Z86.711 Personal history of pulmonary embolism; Z86.718 Personal history of other venous thrombosis and embolism; Y84.2 Radiological procedure and radiotherapy as the cause of abnormal reaction of the patient, or of later complication, without mention of misadventure at the time of the procedure ==

== ENCOUNTER → 2021-07-04 | Outpatient (CLI) | payer MEDICARE | LOC: WOUNDCARE 00:44 | PROVIDERS: ATTEND Nurse Practitioner | DX: L59.8 Other specified disorders of the skin and subcutaneous tissue related to radiation (principal); M87.9 Osteonecrosis, unspecified; L97.812 Non-pressure chronic ulcer of other part of right lower leg with fat layer exposed; I10 Essential (primary) hypertension; I25.2 Old myocardial infarction; I25.10 Atherosclerotic heart disease of native coronary artery without angina pectoris; F17.200 Nicotine dependence, unspecified, uncomplicated; Z71.6 Tobacco abuse counseling; Z86.711 Personal history of pulmonary embolism; Z86.718 Personal history of other venous thrombosis and embolism; Y84.2 Radiological procedure and radiotherapy as the cause of abnormal reaction of the patient, or of later complication, without mention of misadventure at the time of the procedure ==

== ENCOUNTER → 2021-07-07 | Day surgery (SDC) | payer MEDICARE ==
[2021-07-03 14:37] VITALS: BP 133/32
[~2021-07-07] VITALS: Ht 172.7 cm; Wt 86.2 kg
[2021-07-07 07:15] VITALS: BP 124/68
[2021-07-07 08:35] VITALS: BP 137/75
[2021-07-07 08:50] VITALS: BP 142/80
[2021-07-07 09:04] VITALS: BP 140/72
== END | disposition home or self-care (01) ==
LOC: SDC 07-03 13:15
PROVIDERS: ATTEND Surgery
DX: L97.812 Non-pressure chronic ulcer of other part of right lower leg with fat layer exposed (principal); Z92.3 Personal history of irradiation; L59.8 Other specified disorders of the skin and subcutaneous tissue related to radiation; I10 Essential (primary) hypertension; I25.2 Old myocardial infarction; Z95.5 Presence of coronary angioplasty implant and graft; Z72.0 Tobacco use; Z71.6 Tobacco abuse counseling; Z20.822 Contact with and (suspected) exposure to COVID-19

== ENCOUNTER → 2021-07-08 | Outpatient (CLI) | payer MEDICARE | LOC: WOUNDCARE 01:44 | PROVIDERS: ATTEND Nurse Practitioner | DX: L59.8 Other specified disorders of the skin and subcutaneous tissue related to radiation (principal); M87.9 Osteonecrosis, unspecified; L97.812 Non-pressure chronic ulcer of other part of right lower leg with fat layer exposed; I10 Essential (primary) hypertension; I25.2 Old myocardial infarction; I25.10 Atherosclerotic heart disease of native coronary artery without angina pectoris; F17.200 Nicotine dependence, unspecified, uncomplicated; Z71.6 Tobacco abuse counseling; Z86.711 Personal history of pulmonary embolism; Z86.718 Personal history of other venous thrombosis and embolism; Y84.2 Radiological procedure and radiotherapy as the cause of abnormal reaction of the patient, or of later complication, without mention of misadventure at the time of the procedure ==

== ENCOUNTER → 2021-07-09 | Outpatient (CLI) | payer MEDICARE | LOC: WOUNDCARE 00:34 | PROVIDERS: ATTEND Nurse Practitioner | DX: L59.8 Other specified disorders of the skin and subcutaneous tissue related to radiation (principal); M87.9 Osteonecrosis, unspecified; L97.812 Non-pressure chronic ulcer of other part of right lower leg with fat layer exposed; I10 Essential (primary) hypertension; I25.2 Old myocardial infarction; I25.10 Atherosclerotic heart disease of native coronary artery without angina pectoris; F17.200 Nicotine dependence, unspecified, uncomplicated; Z71.6 Tobacco abuse counseling; Z86.711 Personal history of pulmonary embolism; Z86.718 Personal history of other venous thrombosis and embolism; Y84.2 Radiological procedure and radiotherapy as the cause of abnormal reaction of the patient, or of later complication, without mention of misadventure at the time of the procedure ==

== ENCOUNTER → 2021-07-10 | Outpatient (CLI) | payer MEDICARE | LOC: WOUNDCARE 00:38 | PROVIDERS: ATTEND Nurse Practitioner | DX: L59.8 Other specified disorders of the skin and subcutaneous tissue related to radiation (principal); M87.9 Osteonecrosis, unspecified; L97.812 Non-pressure chronic ulcer of other part of right lower leg with fat layer exposed; I10 Essential (primary) hypertension; I25.2 Old myocardial infarction; I25.10 Atherosclerotic heart disease of native coronary artery without angina pectoris; F17.200 Nicotine dependence, unspecified, uncomplicated; Z71.6 Tobacco abuse counseling; Z86.711 Personal history of pulmonary embolism; Z86.718 Personal history of other venous thrombosis and embolism; Y84.2 Radiological procedure and radiotherapy as the cause of abnormal reaction of the patient, or of later complication, without mention of misadventure at the time of the procedure ==

== ENCOUNTER → 2021-07-11 | Outpatient (CLI) | payer MEDICARE | LOC: WOUNDCARE 00:48 | PROVIDERS: ATTEND Nurse Practitioner | DX: L59.8 Other specified disorders of the skin and subcutaneous tissue related to radiation (principal); M87.9 Osteonecrosis, unspecified; L97.812 Non-pressure chronic ulcer of other part of right lower leg with fat layer exposed; I10 Essential (primary) hypertension; I25.2 Old myocardial infarction; I25.10 Atherosclerotic heart disease of native coronary artery without angina pectoris; F17.200 Nicotine dependence, unspecified, uncomplicated; Z71.6 Tobacco abuse counseling; Z86.711 Personal history of pulmonary embolism; Z86.718 Personal history of other venous thrombosis and embolism; Y84.2 Radiological procedure and radiotherapy as the cause of abnormal reaction of the patient, or of later complication, without mention of misadventure at the time of the procedure ==

== ENCOUNTER → 2021-07-14 | Outpatient (CLI) | payer MEDICARE | LOC: WOUNDCARE 01:06 | PROVIDERS: ATTEND Nurse Practitioner | DX: L59.8 Other specified disorders of the skin and subcutaneous tissue related to radiation (principal); M87.9 Osteonecrosis, unspecified; L97.812 Non-pressure chronic ulcer of other part of right lower leg with fat layer exposed; I10 Essential (primary) hypertension; I25.2 Old myocardial infarction; I25.10 Atherosclerotic heart disease of native coronary artery without angina pectoris; F17.200 Nicotine dependence, unspecified, uncomplicated; Z71.6 Tobacco abuse counseling; Z86.711 Personal history of pulmonary embolism; Z86.718 Personal history of other venous thrombosis and embolism; Y84.2 Radiological procedure and radiotherapy as the cause of abnormal reaction of the patient, or of later complication, without mention of misadventure at the time of the procedure ==

== ENCOUNTER → 2021-07-15 | Outpatient (CLI) | payer MEDICARE | LOC: WOUNDCARE 01:16 | PROVIDERS: ATTEND Nurse Practitioner | DX: L59.8 Other specified disorders of the skin and subcutaneous tissue related to radiation (principal); M87.9 Osteonecrosis, unspecified; L97.812 Non-pressure chronic ulcer of other part of right lower leg with fat layer exposed; I10 Essential (primary) hypertension; I25.2 Old myocardial infarction; I25.10 Atherosclerotic heart disease of native coronary artery without angina pectoris; F17.200 Nicotine dependence, unspecified, uncomplicated; Z71.6 Tobacco abuse counseling; Z86.711 Personal history of pulmonary embolism; Z86.718 Personal history of other venous thrombosis and embolism; Y84.2 Radiological procedure and radiotherapy as the cause of abnormal reaction of the patient, or of later complication, without mention of misadventure at the time of the procedure ==

== ENCOUNTER → 2021-07-17 | Outpatient (CLI) | payer MEDICARE | LOC: WOUNDCARE 00:40 | PROVIDERS: ATTEND Nurse Practitioner | DX: L59.8 Other specified disorders of the skin and subcutaneous tissue related to radiation (principal); L97.812 Non-pressure chronic ulcer of other part of right lower leg with fat layer exposed; I10 Essential (primary) hypertension; I25.2 Old myocardial infarction; I25.10 Atherosclerotic heart disease of native coronary artery without angina pectoris; M87.9 Osteonecrosis, unspecified; F17.200 Nicotine dependence, unspecified, uncomplicated; Z71.6 Tobacco abuse counseling; Z86.718 Personal history of other venous thrombosis and embolism; Y84.2 Radiological procedure and radiotherapy as the cause of abnormal reaction of the patient, or of later complication, without mention of misadventure at the time of the procedure ==

== ENCOUNTER → 2021-07-18 | Outpatient (CLI) | payer MEDICARE | LOC: WOUNDCARE 02:48 | PROVIDERS: ATTEND Nurse Practitioner | DX: L59.8 Other specified disorders of the skin and subcutaneous tissue related to radiation (principal); L97.812 Non-pressure chronic ulcer of other part of right lower leg with fat layer exposed; I10 Essential (primary) hypertension; I25.2 Old myocardial infarction; I25.10 Atherosclerotic heart disease of native coronary artery without angina pectoris; M87.9 Osteonecrosis, unspecified; F17.200 Nicotine dependence, unspecified, uncomplicated; Z71.6 Tobacco abuse counseling; Z86.718 Personal history of other venous thrombosis and embolism; Y84.2 Radiological procedure and radiotherapy as the cause of abnormal reaction of the patient, or of later complication, without mention of misadventure at the time of the procedure ==

== ENCOUNTER → 2021-07-21 | Outpatient (CLI) | payer MEDICARE | LOC: WOUNDCARE 01:39 | PROVIDERS: ATTEND Nurse Practitioner | DX: L59.8 Other specified disorders of the skin and subcutaneous tissue related to radiation (principal); L97.812 Non-pressure chronic ulcer of other part of right lower leg with fat layer exposed; I10 Essential (primary) hypertension; I25.2 Old myocardial infarction; I25.10 Atherosclerotic heart disease of native coronary artery without angina pectoris; M87.9 Osteonecrosis, unspecified; F17.200 Nicotine dependence, unspecified, uncomplicated; Z71.6 Tobacco abuse counseling; Z86.718 Personal history of other venous thrombosis and embolism; Y84.2 Radiological procedure and radiotherapy as the cause of abnormal reaction of the patient, or of later complication, without mention of misadventure at the time of the procedure ==

== ENCOUNTER → 2021-07-22 | Outpatient (CLI) | payer MEDICARE | LOC: WOUNDCARE 01:37 | PROVIDERS: ATTEND Nurse Practitioner | DX: L59.8 Other specified disorders of the skin and subcutaneous tissue related to radiation (principal); L97.812 Non-pressure chronic ulcer of other part of right lower leg with fat layer exposed; I10 Essential (primary) hypertension; I25.2 Old myocardial infarction; I25.10 Atherosclerotic heart disease of native coronary artery without angina pectoris; M87.9 Osteonecrosis, unspecified; F17.200 Nicotine dependence, unspecified, uncomplicated; Z71.6 Tobacco abuse counseling; Z86.718 Personal history of other venous thrombosis and embolism; Y84.2 Radiological procedure and radiotherapy as the cause of abnormal reaction of the patient, or of later complication, without mention of misadventure at the time of the procedure ==

== ENCOUNTER → 2021-07-23 | Outpatient (CLI) | payer MEDICARE | LOC: WOUNDCARE 02:17 | PROVIDERS: ATTEND Nurse Practitioner | DX: L59.8 Other specified disorders of the skin and subcutaneous tissue related to radiation (principal); L97.812 Non-pressure chronic ulcer of other part of right lower leg with fat layer exposed; I10 Essential (primary) hypertension; I25.2 Old myocardial infarction; I25.10 Atherosclerotic heart disease of native coronary artery without angina pectoris; M87.9 Osteonecrosis, unspecified; F17.200 Nicotine dependence, unspecified, uncomplicated; Z71.6 Tobacco abuse counseling; Z86.718 Personal history of other venous thrombosis and embolism; Y84.2 Radiological procedure and radiotherapy as the cause of abnormal reaction of the patient, or of later complication, without mention of misadventure at the time of the procedure ==

== ENCOUNTER → 2021-07-24 | Outpatient (CLI) | payer MEDICARE | LOC: WOUNDCARE 00:25 | PROVIDERS: ATTEND Nurse Practitioner | DX: L59.8 Other specified disorders of the skin and subcutaneous tissue related to radiation (principal); L97.812 Non-pressure chronic ulcer of other part of right lower leg with fat layer exposed; I10 Essential (primary) hypertension; I25.2 Old myocardial infarction; I25.10 Atherosclerotic heart disease of native coronary artery without angina pectoris; M87.9 Osteonecrosis, unspecified; F17.200 Nicotine dependence, unspecified, uncomplicated; Z71.6 Tobacco abuse counseling; Z86.718 Personal history of other venous thrombosis and embolism; Y84.2 Radiological procedure and radiotherapy as the cause of abnormal reaction of the patient, or of later complication, without mention of misadventure at the time of the procedure ==

== ENCOUNTER → 2021-07-25 | Outpatient (CLI) | payer MEDICARE | LOC: WOUNDCARE 08:00 | PROVIDERS: ATTEND Nurse Practitioner | DX: L59.8 Other specified disorders of the skin and subcutaneous tissue related to radiation (principal); M87.88 Other osteonecrosis, other site; L97.812 Non-pressure chronic ulcer of other part of right lower leg with fat layer exposed; I10 Essential (primary) hypertension; I25.2 Old myocardial infarction; I25.10 Atherosclerotic heart disease of native coronary artery without angina pectoris; F17.200 Nicotine dependence, unspecified, uncomplicated; Z71.6 Tobacco abuse counseling; Z86.718 Personal history of other venous thrombosis and embolism; Y84.2 Radiological procedure and radiotherapy as the cause of abnormal reaction of the patient, or of later complication, without mention of misadventure at the time of the procedure ==

== ENCOUNTER → 2021-07-29 | Outpatient (CLI) | payer MEDICARE | LOC: WOUNDCARE 00:37 | PROVIDERS: ATTEND Nurse Practitioner | DX: L59.8 Other specified disorders of the skin and subcutaneous tissue related to radiation (principal); L97.812 Non-pressure chronic ulcer of other part of right lower leg with fat layer exposed; I10 Essential (primary) hypertension; I25.2 Old myocardial infarction; I25.10 Atherosclerotic heart disease of native coronary artery without angina pectoris; M87.9 Osteonecrosis, unspecified; F17.200 Nicotine dependence, unspecified, uncomplicated; Z71.6 Tobacco abuse counseling; Z86.718 Personal history of other venous thrombosis and embolism; Y84.2 Radiological procedure and radiotherapy as the cause of abnormal reaction of the patient, or of later complication, without mention of misadventure at the time of the procedure ==

== ENCOUNTER → 2021-07-30 | Outpatient (CLI) | payer MEDICARE | LOC: WOUNDCARE 01:20 | PROVIDERS: ATTEND Nurse Practitioner | DX: L59.8 Other specified disorders of the skin and subcutaneous tissue related to radiation (principal); L97.812 Non-pressure chronic ulcer of other part of right lower leg with fat layer exposed; I10 Essential (primary) hypertension; I25.2 Old myocardial infarction; I25.10 Atherosclerotic heart disease of native coronary artery without angina pectoris; M87.9 Osteonecrosis, unspecified; F17.200 Nicotine dependence, unspecified, uncomplicated; Z71.6 Tobacco abuse counseling; Z86.718 Personal history of other venous thrombosis and embolism; Y84.2 Radiological procedure and radiotherapy as the cause of abnormal reaction of the patient, or of later complication, without mention of misadventure at the time of the procedure ==

== ENCOUNTER → 2021-08-01 | Outpatient (CLI) | payer MEDICARE | LOC: WOUNDCARE 00:45 | PROVIDERS: ATTEND Nurse Practitioner | DX: L59.8 Other specified disorders of the skin and subcutaneous tissue related to radiation (principal); L97.812 Non-pressure chronic ulcer of other part of right lower leg with fat layer exposed; I10 Essential (primary) hypertension; I25.2 Old myocardial infarction; I25.10 Atherosclerotic heart disease of native coronary artery without angina pectoris; M87.9 Osteonecrosis, unspecified; F17.200 Nicotine dependence, unspecified, uncomplicated; Z71.6 Tobacco abuse counseling; Z86.718 Personal history of other venous thrombosis and embolism; Y84.2 Radiological procedure and radiotherapy as the cause of abnormal reaction of the patient, or of later complication, without mention of misadventure at the time of the procedure ==

== ENCOUNTER → 2021-08-11 | Outpatient (CLI) | payer MEDICARE | LOC: WOUNDCARE 00:40 | PROVIDERS: ATTEND Nurse Practitioner | DX: L59.8 Other specified disorders of the skin and subcutaneous tissue related to radiation (principal); L97.812 Non-pressure chronic ulcer of other part of right lower leg with fat layer exposed; I10 Essential (primary) hypertension; I25.2 Old myocardial infarction; I25.10 Atherosclerotic heart disease of native coronary artery without angina pectoris; M87.88 Other osteonecrosis, other site; F17.200 Nicotine dependence, unspecified, uncomplicated; Z71.6 Tobacco abuse counseling; Z86.718 Personal history of other venous thrombosis and embolism; Y84.2 Radiological procedure and radiotherapy as the cause of abnormal reaction of the patient, or of later complication, without mention of misadventure at the time of the procedure ==

== ENCOUNTER → 2021-08-12 | Outpatient (CLI) | payer MEDICARE | LOC: WOUNDCARE 00:36 | PROVIDERS: ATTEND Nurse Practitioner | DX: L59.8 Other specified disorders of the skin and subcutaneous tissue related to radiation (principal); M87.88 Other osteonecrosis, other site; L97.812 Non-pressure chronic ulcer of other part of right lower leg with fat layer exposed; I10 Essential (primary) hypertension; I25.2 Old myocardial infarction; I25.10 Atherosclerotic heart disease of native coronary artery without angina pectoris; F17.200 Nicotine dependence, unspecified, uncomplicated; Z71.6 Tobacco abuse counseling; Z86.718 Personal history of other venous thrombosis and embolism; Y84.2 Radiological procedure and radiotherapy as the cause of abnormal reaction of the patient, or of later complication, without mention of misadventure at the time of the procedure ==

== ENCOUNTER → 2021-09-02 | Outpatient (CLI) | payer MEDICARE | LOC: WOUNDCARE 15:14 | PROVIDERS: ATTEND Surgery | DX: L59.8 Other specified disorders of the skin and subcutaneous tissue related to radiation (principal); M87.88 Other osteonecrosis, other site; L97.812 Non-pressure chronic ulcer of other part of right lower leg with fat layer exposed; I10 Essential (primary) hypertension; I25.2 Old myocardial infarction; I25.10 Atherosclerotic heart disease of native coronary artery without angina pectoris; F17.200 Nicotine dependence, unspecified, uncomplicated; Z71.6 Tobacco abuse counseling; Z86.718 Personal history of other venous thrombosis and embolism; Y84.2 Radiological procedure and radiotherapy as the cause of abnormal reaction of the patient, or of later complication, without mention of misadventure at the time of the procedure ==

== ENCOUNTER → 2021-09-08 | Outpatient (CLI) | payer MEDICARE | LOC: WOUNDCARE 01:17 | PROVIDERS: ATTEND Nurse Practitioner Family | DX: L59.8 Other specified disorders of the skin and subcutaneous tissue related to radiation (principal); M87.88 Other osteonecrosis, other site; L97.812 Non-pressure chronic ulcer of other part of right lower leg with fat layer exposed; I25.2 Old myocardial infarction; I10 Essential (primary) hypertension; I25.10 Atherosclerotic heart disease of native coronary artery without angina pectoris; F17.200 Nicotine dependence, unspecified, uncomplicated; Z71.6 Tobacco abuse counseling; Z86.718 Personal history of other venous thrombosis and embolism; Y84.2 Radiological procedure and radiotherapy as the cause of abnormal reaction of the patient, or of later complication, without mention of misadventure at the time of the procedure ==

== ENCOUNTER → 2021-09-09 | Outpatient (CLI) | payer MEDICARE | LOC: WOUNDCARE 00:44 | PROVIDERS: ATTEND Nurse Practitioner Family | DX: L59.8 Other specified disorders of the skin and subcutaneous tissue related to radiation (principal); M87.88 Other osteonecrosis, other site; L97.812 Non-pressure chronic ulcer of other part of right lower leg with fat layer exposed; I10 Essential (primary) hypertension; I25.2 Old myocardial infarction; I25.10 Atherosclerotic heart disease of native coronary artery without angina pectoris; F17.200 Nicotine dependence, unspecified, uncomplicated; Z71.6 Tobacco abuse counseling; Z86.718 Personal history of other venous thrombosis and embolism; Y84.2 Radiological procedure and radiotherapy as the cause of abnormal reaction of the patient, or of later complication, without mention of misadventure at the time of the procedure ==

== ENCOUNTER → 2021-09-16 | Outpatient (CLI) | payer MEDICARE | LOC: WOUNDCARE 00:38 | PROVIDERS: ATTEND Internal Medicine | DX: L59.8 Other specified disorders of the skin and subcutaneous tissue related to radiation (principal); M87.88 Other osteonecrosis, other site; L97.812 Non-pressure chronic ulcer of other part of right lower leg with fat layer exposed; I10 Essential (primary) hypertension; I25.2 Old myocardial infarction; I25.10 Atherosclerotic heart disease of native coronary artery without angina pectoris; F17.200 Nicotine dependence, unspecified, uncomplicated; Z71.6 Tobacco abuse counseling; Z86.718 Personal history of other venous thrombosis and embolism; Y84.2 Radiological procedure and radiotherapy as the cause of abnormal reaction of the patient, or of later complication, without mention of misadventure at the time of the procedure ==

== ENCOUNTER → 2021-09-22 | Outpatient (CLI) | payer MEDICARE | LOC: WOUNDCARE 00:23 | PROVIDERS: ATTEND Internal Medicine | DX: L59.8 Other specified disorders of the skin and subcutaneous tissue related to radiation (principal); M87.88 Other osteonecrosis, other site; L97.812 Non-pressure chronic ulcer of other part of right lower leg with fat layer exposed; I10 Essential (primary) hypertension; I25.2 Old myocardial infarction; F17.200 Nicotine dependence, unspecified, uncomplicated; Z71.6 Tobacco abuse counseling; Z86.718 Personal history of other venous thrombosis and embolism; Y84.2 Radiological procedure and radiotherapy as the cause of abnormal reaction of the patient, or of later complication, without mention of misadventure at the time of the procedure ==

== ENCOUNTER → 2021-09-23 | Outpatient (CLI) | payer MEDICARE | LOC: WOUNDCARE 01:28 | PROVIDERS: ATTEND Internal Medicine | DX: L59.8 Other specified disorders of the skin and subcutaneous tissue related to radiation (principal); M87.88 Other osteonecrosis, other site; L97.812 Non-pressure chronic ulcer of other part of right lower leg with fat layer exposed; I10 Essential (primary) hypertension; I25.2 Old myocardial infarction; I25.10 Atherosclerotic heart disease of native coronary artery without angina pectoris; F17.200 Nicotine dependence, unspecified, uncomplicated; Z71.6 Tobacco abuse counseling; Z86.718 Personal history of other venous thrombosis and embolism; Y84.2 Radiological procedure and radiotherapy as the cause of abnormal reaction of the patient, or of later complication, without mention of misadventure at the time of the procedure ==

== ENCOUNTER → 2021-09-24 | Outpatient (CLI) | payer MEDICARE | LOC: WOUNDCARE 01:54 | PROVIDERS: ATTEND Internal Medicine | DX: L59.8 Other specified disorders of the skin and subcutaneous tissue related to radiation (principal); M87.88 Other osteonecrosis, other site; L97.812 Non-pressure chronic ulcer of other part of right lower leg with fat layer exposed; I10 Essential (primary) hypertension; I25.2 Old myocardial infarction; F17.200 Nicotine dependence, unspecified, uncomplicated; Z71.6 Tobacco abuse counseling; Z86.718 Personal history of other venous thrombosis and embolism; Y84.2 Radiological procedure and radiotherapy as the cause of abnormal reaction of the patient, or of later complication, without mention of misadventure at the time of the procedure ==

== ENCOUNTER → 2021-09-29 | Outpatient (CLI) | payer MEDICARE | LOC: WOUNDCARE 00:01 | PROVIDERS: ATTEND Nurse Practitioner Family | DX: L59.8 Other specified disorders of the skin and subcutaneous tissue related to radiation (principal); M87.88 Other osteonecrosis, other site; L97.812 Non-pressure chronic ulcer of other part of right lower leg with fat layer exposed; I10 Essential (primary) hypertension; I25.2 Old myocardial infarction; F17.200 Nicotine dependence, unspecified, uncomplicated; Z71.6 Tobacco abuse counseling; Z86.718 Personal history of other venous thrombosis and embolism; Y84.2 Radiological procedure and radiotherapy as the cause of abnormal reaction of the patient, or of later complication, without mention of misadventure at the time of the procedure ==

== ENCOUNTER → 2021-09-30 | Outpatient (CLI) | payer MEDICARE | LOC: WOUNDCARE 01:33 | PROVIDERS: ATTEND Surgery | DX: L59.8 Other specified disorders of the skin and subcutaneous tissue related to radiation (principal); M87.88 Other osteonecrosis, other site; L97.812 Non-pressure chronic ulcer of other part of right lower leg with fat layer exposed; I10 Essential (primary) hypertension; I25.2 Old myocardial infarction; F17.200 Nicotine dependence, unspecified, uncomplicated; Z71.6 Tobacco abuse counseling; Z86.718 Personal history of other venous thrombosis and embolism; Y84.2 Radiological procedure and radiotherapy as the cause of abnormal reaction of the patient, or of later complication, without mention of misadventure at the time of the procedure ==

== ENCOUNTER → 2021-10-07 | Outpatient (CLI) | payer MEDICARE | LOC: WOUNDCARE 01:50 | PROVIDERS: ATTEND Internal Medicine | DX: L59.8 Other specified disorders of the skin and subcutaneous tissue related to radiation (principal); M87.88 Other osteonecrosis, other site; L97.812 Non-pressure chronic ulcer of other part of right lower leg with fat layer exposed; I10 Essential (primary) hypertension; I25.2 Old myocardial infarction; F17.200 Nicotine dependence, unspecified, uncomplicated; Z71.6 Tobacco abuse counseling; Z86.718 Personal history of other venous thrombosis and embolism; Y84.2 Radiological procedure and radiotherapy as the cause of abnormal reaction of the patient, or of later complication, without mention of misadventure at the time of the procedure ==

== ENCOUNTER → 2021-10-13 | Outpatient (CLI) | payer MEDICARE | LOC: WOUNDCARE 02:33 | PROVIDERS: ATTEND Nurse Practitioner Family | DX: L59.8 Other specified disorders of the skin and subcutaneous tissue related to radiation (principal); M87.88 Other osteonecrosis, other site; L97.812 Non-pressure chronic ulcer of other part of right lower leg with fat layer exposed; I10 Essential (primary) hypertension; I25.2 Old myocardial infarction; F17.200 Nicotine dependence, unspecified, uncomplicated; Z71.6 Tobacco abuse counseling; Z86.718 Personal history of other venous thrombosis and embolism; Y84.2 Radiological procedure and radiotherapy as the cause of abnormal reaction of the patient, or of later complication, without mention of misadventure at the time of the procedure ==

== ENCOUNTER → 2021-10-14 | Outpatient (CLI) | payer MEDICARE | LOC: WOUNDCARE 02:52 | PROVIDERS: ATTEND Nurse Practitioner Family | DX: L59.8 Other specified disorders of the skin and subcutaneous tissue related to radiation (principal); M87.88 Other osteonecrosis, other site; L97.812 Non-pressure chronic ulcer of other part of right lower leg with fat layer exposed; I10 Essential (primary) hypertension; I25.2 Old myocardial infarction; F17.200 Nicotine dependence, unspecified, uncomplicated; Z71.6 Tobacco abuse counseling; Z86.718 Personal history of other venous thrombosis and embolism; Y84.2 Radiological procedure and radiotherapy as the cause of abnormal reaction of the patient, or of later complication, without mention of misadventure at the time of the procedure ==

== ENCOUNTER → 2021-10-15 | Outpatient (CLI) | payer MEDICARE | LOC: WOUNDCARE 00:30 | PROVIDERS: ATTEND Nurse Practitioner Family | DX: L59.8 Other specified disorders of the skin and subcutaneous tissue related to radiation (principal); M87.88 Other osteonecrosis, other site; L97.812 Non-pressure chronic ulcer of other part of right lower leg with fat layer exposed; I10 Essential (primary) hypertension; I25.2 Old myocardial infarction; F17.200 Nicotine dependence, unspecified, uncomplicated; Z71.6 Tobacco abuse counseling; Z86.718 Personal history of other venous thrombosis and embolism; Y84.2 Radiological procedure and radiotherapy as the cause of abnormal reaction of the patient, or of later complication, without mention of misadventure at the time of the procedure ==

== ENCOUNTER → 2021-10-20 | Outpatient (CLI) | payer MEDICARE | LOC: WOUNDCARE 10:01 | PROVIDERS: ATTEND Nurse Practitioner Family | DX: L59.8 Other specified disorders of the skin and subcutaneous tissue related to radiation (principal); M87.88 Other osteonecrosis, other site; L97.812 Non-pressure chronic ulcer of other part of right lower leg with fat layer exposed; I10 Essential (primary) hypertension; I25.2 Old myocardial infarction; F17.200 Nicotine dependence, unspecified, uncomplicated; Z71.6 Tobacco abuse counseling; Z86.718 Personal history of other venous thrombosis and embolism; Y84.2 Radiological procedure and radiotherapy as the cause of abnormal reaction of the patient, or of later complication, without mention of misadventure at the time of the procedure ==

== ENCOUNTER → 2021-10-23 | Outpatient (CLI) | payer MEDICARE | LOC: WOUNDCARE 00:55 | PROVIDERS: ATTEND Nurse Practitioner Family | DX: L59.8 Other specified disorders of the skin and subcutaneous tissue related to radiation (principal); M87.88 Other osteonecrosis, other site; L97.812 Non-pressure chronic ulcer of other part of right lower leg with fat layer exposed; I10 Essential (primary) hypertension; I25.2 Old myocardial infarction; F17.200 Nicotine dependence, unspecified, uncomplicated; Z71.6 Tobacco abuse counseling; Z86.718 Personal history of other venous thrombosis and embolism; Y84.2 Radiological procedure and radiotherapy as the cause of abnormal reaction of the patient, or of later complication, without mention of misadventure at the time of the procedure ==

== ENCOUNTER → 2021-10-24 | Day surgery (SDC) | payer MEDICARE ==
[~2021-10-24] VITALS: Ht 172.7 cm; Wt 86.2 kg
[2021-10-24 09:00] VITALS: BP 148/73
[2021-10-24 10:41] VITALS: BP 140/67
[2021-10-24 10:56] VITALS: BP 145/69
[2021-10-24 11:11] VITALS: BP 137/66
== END | disposition home or self-care (01) ==
LOC: SDC 10-21 08:45
PROVIDERS: ATTEND Surgery
DX: S91.301A Unspecified open wound, right foot, initial encounter (principal); I10 Essential (primary) hypertension; I25.2 Old myocardial infarction; E78.5 Hyperlipidemia, unspecified; Z95.5 Presence of coronary angioplasty implant and graft; F17.210 Nicotine dependence, cigarettes, uncomplicated; Z20.822 Contact with and (suspected) exposure to COVID-19; Z79.899 Other long term (current) drug therapy; X58.XXXA Exposure to other specified factors, initial encounter; Y93.89 Activity, other specified; Y92.89 Other specified places as the place of occurrence of the external cause; Y99.8 Other external cause status

== ENCOUNTER → 2021-10-28 | Outpatient (CLI) | payer MEDICARE | LOC: WOUNDCARE 12:06 | PROVIDERS: ATTEND Surgery | DX: T81.89XA Other complications of procedures, not elsewhere classified, initial encounter (principal); L59.8 Other specified disorders of the skin and subcutaneous tissue related to radiation; L97.812 Non-pressure chronic ulcer of other part of right lower leg with fat layer exposed; M87.88 Other osteonecrosis, other site; I10 Essential (primary) hypertension; I25.2 Old myocardial infarction; F17.200 Nicotine dependence, unspecified, uncomplicated; Z71.6 Tobacco abuse counseling; Z86.718 Personal history of other venous thrombosis and embolism; Y84.2 Radiological procedure and radiotherapy as the cause of abnormal reaction of the patient, or of later complication, without mention of misadventure at the time of the procedure; Y92.238 Other place in hospital as the place of occurrence of the external cause; Y83.8 Other surgical procedures as the cause of abnormal reaction of the patient, or of later complication, without mention of misadventure at the time of the procedure ==

== ENCOUNTER → 2021-11-05 | Outpatient (CLI) | payer MEDICARE | LOC: WOUNDCARE 00:14 | PROVIDERS: ATTEND Nurse Practitioner Family | DX: T86.828 Other complications of skin graft (allograft) (autograft) (principal); L59.8 Other specified disorders of the skin and subcutaneous tissue related to radiation; L97.812 Non-pressure chronic ulcer of other part of right lower leg with fat layer exposed; M87.88 Other osteonecrosis, other site; I10 Essential (primary) hypertension; I25.2 Old myocardial infarction; F17.200 Nicotine dependence, unspecified, uncomplicated; Z71.6 Tobacco abuse counseling; Z86.718 Personal history of other venous thrombosis and embolism; Y83.2 Surgical operation with anastomosis, bypass or graft as the cause of abnormal reaction of the patient, or of later complication, without mention of misadventure at the time of the procedure ==

== ENCOUNTER → 2021-11-11 | Outpatient (CLI) | payer MEDICARE | LOC: WOUNDCARE 00:50 | PROVIDERS: ATTEND Surgery | DX: L97.812 Non-pressure chronic ulcer of other part of right lower leg with fat layer exposed (principal); L59.8 Other specified disorders of the skin and subcutaneous tissue related to radiation; I10 Essential (primary) hypertension; I25.10 Atherosclerotic heart disease of native coronary artery without angina pectoris; I25.2 Old myocardial infarction; F17.200 Nicotine dependence, unspecified, uncomplicated; Z71.6 Tobacco abuse counseling; Z92.3 Personal history of irradiation; Z86.718 Personal history of other venous thrombosis and embolism; Z86.711 Personal history of pulmonary embolism; Z85.831 Personal history of malignant neoplasm of soft tissue ==

== ENCOUNTER → 2021-11-25 | Outpatient (CLI) | payer MEDICARE | LOC: WOUNDCARE 02:32 | PROVIDERS: ATTEND Surgery | DX: L97.812 Non-pressure chronic ulcer of other part of right lower leg with fat layer exposed (principal); L59.8 Other specified disorders of the skin and subcutaneous tissue related to radiation; I10 Essential (primary) hypertension; I25.10 Atherosclerotic heart disease of native coronary artery without angina pectoris; I25.2 Old myocardial infarction; F17.200 Nicotine dependence, unspecified, uncomplicated; Z71.6 Tobacco abuse counseling; Z92.3 Personal history of irradiation; Z86.718 Personal history of other venous thrombosis and embolism; Z86.711 Personal history of pulmonary embolism; Z85.831 Personal history of malignant neoplasm of soft tissue ==

== ENCOUNTER → 2021-12-10 | Outpatient (CLI) | payer MEDICARE | LOC: WOUNDCARE 12-08 01:35 | PROVIDERS: ATTEND Nurse Practitioner Family | DX: L97.812 Non-pressure chronic ulcer of other part of right lower leg with fat layer exposed (principal); L59.8 Other specified disorders of the skin and subcutaneous tissue related to radiation; I10 Essential (primary) hypertension; I25.10 Atherosclerotic heart disease of native coronary artery without angina pectoris; I25.2 Old myocardial infarction; F17.200 Nicotine dependence, unspecified, uncomplicated; Z71.6 Tobacco abuse counseling; Z92.3 Personal history of irradiation; Z86.718 Personal history of other venous thrombosis and embolism; Z86.711 Personal history of pulmonary embolism; Z85.831 Personal history of malignant neoplasm of soft tissue ==

== ENCOUNTER → 2021-12-22 | Outpatient (CLI) | payer MEDICARE | LOC: WOUNDCARE 01:06 | PROVIDERS: ATTEND Nurse Practitioner Family | DX: L97.812 Non-pressure chronic ulcer of other part of right lower leg with fat layer exposed (principal); L59.8 Other specified disorders of the skin and subcutaneous tissue related to radiation; I10 Essential (primary) hypertension; I25.10 Atherosclerotic heart disease of native coronary artery without angina pectoris; I25.2 Old myocardial infarction; F17.200 Nicotine dependence, unspecified, uncomplicated; Z71.6 Tobacco abuse counseling; Z92.3 Personal history of irradiation; Z86.718 Personal history of other venous thrombosis and embolism; Z86.711 Personal history of pulmonary embolism; Z85.831 Personal history of malignant neoplasm of soft tissue ==

== ENCOUNTER → 2022-01-05 | Outpatient (CLI) | payer MEDICARE | LOC: WOUNDCARE 01:35 | PROVIDERS: ATTEND Nurse Practitioner Family | DX: L97.812 Non-pressure chronic ulcer of other part of right lower leg with fat layer exposed (principal); L59.8 Other specified disorders of the skin and subcutaneous tissue related to radiation; I10 Essential (primary) hypertension; I25.10 Atherosclerotic heart disease of native coronary artery without angina pectoris; I25.2 Old myocardial infarction; F17.200 Nicotine dependence, unspecified, uncomplicated; Z71.6 Tobacco abuse counseling; Z92.3 Personal history of irradiation; Z86.718 Personal history of other venous thrombosis and embolism; Z86.711 Personal history of pulmonary embolism; Z85.831 Personal history of malignant neoplasm of soft tissue ==

== ENCOUNTER 2024-06-17 15:04 | Emergency (ER) | payer MEDICARE ==
[~2024-06-17] VITALS: Ht 172.7 cm; Wt 83.9 kg
[2024-06-17] MEDS ORDERED: VIBRAMYCIN100 MG PO (15:46)
== END 2024-06-17 15:43 | disposition home or self-care (01) ==
LOC: ED 15:04
PROVIDERS: Nurse Practitioner Family
DX: A26.0 Cutaneous erysipeloid (principal); I10 Essential (primary) hypertension; K21.9 Gastro-esophageal reflux disease without esophagitis; Z79.2 Long term (current) use of antibiotics; Z79.899 Other long term (current) drug therapy; Z79.82 Long term (current) use of aspirin; Z95.5 Presence of coronary angioplasty implant and graft

== ENCOUNTER 2025-04-03 14:17 | Observation (INO) | payer MEDICARE ==
[~2025-04-03] VITALS: Ht 172.7 cm; Wt 82.1 kg
[~2025-04-03 14:17] MED LIST changes: +GABARONE100 M1 PO; +HYDROCODONE-AC1 EAC1 PO; +VIBRAMYCIN100 MG PO
[2025-04-03 14:26] VITALS: BP 97/46
[2025-04-03] MEDS ORDERED: ASPIRIN, CHEWABLE 81 MG TAB PO ONE (14:30)
[2025-04-03 14:46] LABS: BASO # 0.1 10*3/uL (0.0-0.1); BASO % 0.5 % (0.0-1.0); EOS # 0.2 10*3/uL (0.0-0.4); HEMATOCRIT 48.3 % (42.0-52.0); MEAN CELL VOLUME 91.1 fl (80.0-94.0); MEAN CORPUSCULAR HGB 30.4 pg (27.0-31.0); MEAN CORPUSCULAR HGB CONC 33.3 g/dl (33.0-37.0); MEAN PLATELET VOLUME 8.9 fl (9.6-12.3); MONO # 1.4 10*3/uL (0.1-1.0); MONO % 11.8 % (3.0-9.0); NEUT # 6.9 10*3/uL (2.3-7.9); NEUT % 58.4 % (47.0-73.0); PLATELET COUNT AUTOMATED 421 10*3/uL (130-400); RED CELL DISTRI WIDTH 14.7 % (0-14.5); WHITE BLOOD COUNT 11.7 10*3/uL (4.8-10.8)
[2025-04-03 15:02] LABS: ACT PARTIAL THROMBO TIME 28.2 SECONDS (20.0-32.1)
[2025-04-03 15:09] LABS: ALKALINE PHOSPHATASE 151 U/L (46-116); BUN 16 mg/dl (9-23); CHLORIDE 99 mmol/L (98-107); POTASSIUM 4.6 mmol/L (3.4-5.1); SGPT/ALT 42 U/L (5-49); TOTAL PROTEIN 8.1 gm/dL (6.0-8.0)
[2025-04-03 16:36] VITALS: BP 101/56
[2025-04-03] MEDS ORDERED: ACETAMINOPHEN 325 MG TAB PO PRN (18:30)
[2025-04-03] MEDS ORDERED: ACETAMINOPHEN 650 MG SUPP R PRN (18:30)
[2025-04-03] MEDS ORDERED: BISACODYL 5 MG TAB PO PRN (18:30)
[2025-04-03] MEDS ORDERED: Ondansetron Hydrochloride 4 MG/2 ML VIAL IV PRN (18:30)
[2025-04-03] MEDS ORDERED: BISACODYL 10 MG SUPP R PRN (18:30)
[2025-04-03] MEDS ORDERED: Magnesium Hydroxide 30 ML UDC PO PRN (18:30)
[2025-04-03 18:59] VITALS: BP 94/61
[2025-04-03 19:33] VITALS: BP 132/62
[2025-04-03 19:40] VITALS: BP 126/61
[2025-04-03] MEDS ORDERED: Nicotine 21 MG PATCH T PRN (20:45)
[2025-04-03] MEDS ORDERED: METOPROLOL SUCCINATE XR 25 MG TAB PO SCH (22:00)
[2025-04-03] MEDS ORDERED: ATORVASTATIN CALCIUM 80 MG TAB PO SCH (22:00)
[2025-04-04] VITALS: BP 121/60
[2025-04-04] MEDS ORDERED: Regadenoson 0.4 MG/5 ML SYR IV ONE (06:29)
[2025-04-04 06:45] LABS: ALKALINE PHOSPHATASE 119 U/L (46-116); BASO # 0.1 10*3/uL (0.0-0.1); BASO % 0.5 % (0.0-1.0); BUN 20 mg/dl (9-23); CHLORIDE 102 mmol/L (98-107); CHOLESTEROL 131 mg/dL (<200); EOS # 0.2 10*3/uL (0.0-0.4); EOS % 1.9 % (1.0-4.0); FREE T4 1.51 ng/dl (0.89-1.76); LDL CHOLESTEROL 76 mg/dL (9-159); MEAN CELL VOLUME 90.7 fl (80.0-94.0); MEAN CORPUSCULAR HGB 29.8 pg (27.0-31.0); MEAN CORPUSCULAR HGB CONC 32.9 g/dl (33.0-37.0); MEAN PLATELET VOLUME 9.5 fl (9.6-12.3); MONO # 1.4 10*3/uL (0.1-1.0); MONO % 12.9 % (3.0-9.0); NEUT # 6.5 10*3/uL (2.3-7.9); NEUT % 60.6 % (47.0-73.0); PLATELET COUNT AUTOMATED 345 10*3/uL (130-400); POTASSIUM 4.2 mmol/L (3.4-5.1); RED BLOOD COUNT 4.63 10*6/uL (4.50-5.90); RED CELL DISTRI WIDTH 14.9 % (0-14.5); SGPT/ALT 33 U/L (5-49); TOTAL PROTEIN 6.6 gm/dL (6.0-8.0); TRIGLYCERIDES 120 mg/dl (<150); WHITE BLOOD COUNT 10.7 10*3/uL (4.8-10.8)
[2025-04-04 06:58] LABS: ACT PARTIAL THROMBO TIME 28.5 SECONDS (20.0-32.1)
[2025-04-04 08:01] LABS: VITAMIN D, 25-HYDROXY 82.9 ng/mL (30-100)
[2025-04-04] MEDS ORDERED: Technetium Tc 99M Tetrofosmi 0.23 MG KIT IJ SCH (08:30)
[2025-04-04] MEDS ORDERED: ASPIRIN ENTERIC COATED 81 MG TAB PO SCH (10:00)
[2025-04-04] MEDS ORDERED: LISINOPRIL 2.5 MG TAB PO SCH (10:00)
[2025-04-04] MEDS ORDERED: Enoxaparin Sodium 40 MG/0.4 ML SYR SC SCH (10:00)
[2025-04-04] MEDS ORDERED: Sodium Hypochlorite 0.125% (1/4 STRENGTH DAKIN'S) 480 ML SOL T SCH (10:00)
[2025-04-04 12:00] VITALS: BP 148/67
== END 2025-04-04 15:40 | disposition home or self-care (01) ==
LOC: ED 14:17 → 5E 18:07 → EDHOLD 18:07 → 5E 18:07
PROVIDERS: Nurse Practitioner Family; ADMIT Family Medicine; ATTEND Family Medicine
DX: R07.89 Other chest pain (principal); R00.1 Bradycardia, unspecified; E87.1 Hypo-osmolality and hyponatremia; R73.9 Hyperglycemia, unspecified; N17.0 Acute kidney failure with tubular necrosis; D72.828 Other elevated white blood cell count; D75.839 Thrombocytosis, unspecified; E88.09 Other disorders of plasma-protein metabolism, not elsewhere classified; I25.110 Atherosclerotic heart disease of native coronary artery with unstable angina pectoris; I10 Essential (primary) hypertension; E78.2 Mixed hyperlipidemia; F17.210 Nicotine dependence, cigarettes, uncomplicated; Z79.899 Other long term (current) drug therapy